=== PATIENT | female | born 1975 | race Caucasian/White ===

== ENCOUNTER 2020-10-16 01:20 | Inpatient (IN) | payer OTHER ==
[~2020-10-16] VITALS: Ht 154.9 cm; Wt 60.5 kg
[2020-10-16 02:06] LABS: HEMATOCRIT 38.3 % (36.0-47.0); HEMOGLOBIN 12.1 g/dl (12.0-15.5); MEAN CORPUSCULAR HEMOGLOBIN 29.4 pg (27.0-33.0); MEAN CORPUSCULAR HGB CONC 31.6 g/dl (32.0-36.5); MEAN CORPUSCULAR VOLUME 93.2 fl (80.0-96.0); PLATELET COUNT, AUTOMATED 236 10^3/uL (150-450); RED BLOOD COUNT 4.11 10^6/uL (4.00-5.40); WHITE BLOOD COUNT 12.6 10^3/uL (4.0-10.0)
[2020-10-16 02:39] LABS: HCG, SERUM QUALITATIVE NEGATIVE (NEGATIVE)
[2020-10-16 02:54] LABS: ACETAMINOPHEN LEVEL < 2.0 UG/ML (10.0-30.0); ALBUMIN 3.3 GM/DL (3.2-5.2); ALT/SGPT 38 U/L (12-78); BILIRUBIN,DIRECT < 0.1 MG/DL (0.0-0.2); BILIRUBIN,TOTAL 0.2 MG/DL (0.2-1.0); BLOOD UREA NITROGEN 8 MG/DL (7-18); CARBON DIOXIDE LEVEL 29 MEQ/L (21-32); CHLORIDE LEVEL 107 MEQ/L (98-107); CREATININE FOR GFR 0.85 MG/DL (0.55-1.30); ETHYL ALCOHOL (ETHANOL) < 0.003 % (0.000-0.010); GLOMERULAR FILTRATION RATE > 60.0 (>58); GLUCOSE, FASTING 116 MG/DL (70-100); LITHIUM LEVEL < 0.20 MEQ/L (0.60-1.20); SALICYLATE LEVEL 1.9 MG/DL (5.0-30.0); SODIUM LEVEL 142 MEQ/L (136-145); TOTAL PROTEIN 6.6 GM/DL (6.4-8.2)
[2020-10-16] MEDS ORDERED: NS 1,000 ML IV ONE (03:00)
[2020-10-16] MEDS ORDERED: LITH45TASA PO (03:27)
[2020-10-16] MEDS ORDERED: VENTAER INH (03:27)
[2020-10-16] MEDS ORDERED: SYMB16INH INH (03:27)
[2020-10-16] MEDS ORDERED: ZYPR1TAB2 PO (03:27)
[2020-10-16] MEDS ORDERED: REME15TA2 PO (03:27)
[2020-10-16] MEDS ORDERED: LORA2CON5 PO (03:27)
[2020-10-16] MEDS ORDERED: CLAR10CA3 PO (03:27)
[2020-10-16] MEDS ORDERED: XANA2TAB2 PO (03:27)
[2020-10-16 03:48] LABS: AMPHETAMINES LEVEL URINE NEGATIVE (NEGATIVE); BARBITURATES URINE NEGATIVE (NEGATIVE); BENZODIAZEPINES URINE POSITIVE (NEGATIVE); CANNABINOIDS URINE NEGATIVE (NEGATIVE); COCAINE METABOLITE URINE NEGATIVE (NEGATIVE); METHADONE URINE NEGATIVE (NEGATIVE); OPIATES URINE NEGATIVE (NEGATIVE); PHENCYCLIDINE URINE NEGATIVE (NEGATIVE)
[2020-10-16] MEDS ORDERED: KEPP1TAB PO (04:16)
[2020-10-16] MEDS ORDERED: ZOFR4TAB16 PO (04:16)
[2020-10-16] MEDS ORDERED: AMBI10TA PO (04:16)
[2020-10-16] MEDS ORDERED: ALBUTEROL 90 MCG/ACT 8GM HFA INHALER INH ONE (05:45)
--- NOTE | 2020-10-16 08:44 | ECGEPIP ---
[facility] [place] - ED Test Date: 2020-10-16 Pat Name: MARGARITA VANN Department: Room: - Gender: Female [employer]: BAN : 1975 Requested By: Lito Beauchamp Order Number: [id number] Reading MD: Lito Black Measurements Intervals [place] Rate: 85 P: 60 DE: 136 QRS: 67 QRSD: 84 T: 54 QT: 382 QTc: 454 Interpretive Statements Normal sinus rhythm NO PRIORS FOR COMPARISON Electronically Signed on 10-16-2020 8:44:20 EDT by Lito Black
[2020-10-16 10:17] LABS: RSV AMPLIFICATION NEGATIVE (NEGATIVE)
[2020-10-16] MEDS ORDERED: ZOLP12.518 PO (12:31)
[2020-10-16] MEDS ORDERED: LORA-674 PO (12:31)
[2020-10-16] MEDS ORDERED: ADDE1TAB14 PO (12:31)
[2020-10-16] MEDS ORDERED: ALPR1TAB3 PO (12:34)
[2020-10-16] MEDS ORDERED: LEVE250T5 PO (12:34)
[2020-10-16] MEDS ORDERED: MIRT-62 PO (12:34)
[2020-10-16] MEDS ORDERED: LORazepam 2 MG TAB PO STA (13:03)
[2020-10-16] MEDS ORDERED: hydrOXYzine 25 MG TAB PO PRN (14:45)
[2020-10-16] MEDS ORDERED: MAALOX 30 ML SUSP *UDC PO PRN (14:45)
[2020-10-16] MEDS ORDERED: ACETAMINOPHEN TAB 650MG DOSE (2X325MG) PO PRN (14:45)
[2020-10-16] MEDS ORDERED: OLANZapine ORAL DISINTEGRATING TAB 5MG PO PRN (14:45)
[2020-10-16] MEDS ORDERED: MOM 30ML SUSPENSION UDC PO PRN (14:45)
[2020-10-16] MEDS: ALPRAZolam 0.5 MG TAB PO SCH (20:09)
[2020-10-16] MEDS: levETIRAcetam 250MG TABLET (KEPPRA) PO SCH (20:09)
[2020-10-16] MEDS ORDERED: zolPIDEM TARTRATE 5 MG TAB PO SCH (21:00)
[2020-10-17 06:00] VITALS: BP 129/58
[2020-10-17] MEDS: levETIRAcetam 250MG TABLET (KEPPRA) PO SCH (08:10)
[2020-10-17] MEDS: ALPRAZolam 0.5 MG TAB PO SCH (08:10)
--- NOTE | 2020-10-17 09:45 | HPEPDOC ---
[facility] Medical History & Physical Date of Admission Oct 17, 2020 Date of Service: Oct 17, 2020 History and Physical CHIEF COMPLAINT: suicidal ideation/attempt HISTORY OF PRESENT ILLNESS: 45-year-old female, admitted to [facility] for suicidal attempt stated to her boyfriend that she will take pills and she will not be seen again in the morning. Patient reports to me that she is feeling well. Denies any active suicidal ideation and states that she was seeking attention. She reports a history of COPD, asthma, epilepsy, SVT status post catheter ablation. She reports that she suspects she may have had a seizure yesterday. Takes Keppra 250 twice a day. She is from [place]. Has not seen a neurologist in some time. Also states that her nebulizer machine is broken. She denies any chest pain, shortness of breath, palpitations, nausea, vomiting, diarrhea. She is alert, oriented. PAST MEDICAL HISTORY: COPD not O2 dependent Asthma epilepy SVT, s/p catheter ablation SOCIAL HISTORY: Patient denies smoking Patient denies etoh use Patient denies illicit drug use ALLERGIES: Please see below. REVIEW OF SYSTEMS: CONSTITUTIONAL: patient denies fevers, chills HEENT: patient denies blurred vision, loss of vision, headache,. CARDIOVASCULAR: patient denies chest pain, palpitations. RESPIRATORY: patient denies shortness of breath, cough, hemoptysis. GASTROINTESTINAL: patient denies abdominal pain, n/v/d, blood in stool. GENITOURINARY: patient denies dysuria, discharge. SKIN: patient denies rashes. MUSCULOSKELETAL: patient denies joint pain, neck pain. NEUROLOGICAL: patient denies focal weakness, numbness, seizures. PSYCHIATRIC: patient denies SI/HI. ENDOCRINE: patient denies polyuria, heat intolerance, cold intolerance. HEMATOLOGIC/LYMPHATIC: patient denies easy bruising. HOME MEDICATIONS: Please see below. PHYSICAL EXAMINATION: VITAL SIGNS: please see below General: NAD, comfortable HEENT: PERRLA, EOMI, sclerae clear Neck: supple, normal ROM, no JVD Respiratory: lungs CTAB, no wheeze, no rales, no crackles CVS: RRR, normal S1, S2, no murmurs Abdo: soft, no masses, no hepatosplenomegaly, BS+, no rebound tenderness Extremities: no edema, pulses 2+ MSK: no joint deformities, normal ROM Neuro: no focal neuro deficits, moving all 4 extremities, CN2-12 intact. Strength 5/5 in all 4 extremities. No nystagmus. Psych: calm, cooperative, AAO x 3 LABORATORY DATA: See below. MICROBIOLOGY: Please see below. ASSESSMENT: 45-year-old female with a history of epilepsy, COPD, asthma, SVT, admitted for suicidal attempt. States that she suspects she may have had a seizure yesterday, takes keppra 250 mg BID. Has not seen neurology in quite some time. She has recently moved from [place]. PLAN: Suicidal ideation/attempt: per psychiatry Hx epilpepsy: questionable seizure on 10/16/20 vs OD on bottle of pills?. Takes keppra 250 mg BID. Will increase to keppra 500 mg BID. Referral to neurology on DC. COPD: stable. takes albuterol and symbicort. not O2 dependent. Will provide refills for inhalers on DC hx SVT: denies palpitations, SOB. S/p ablation. Stable. Thank you for the consult. Please re-consult as needed. Vital Signs Vital Signs Date Time Temp Pulse Resp B/P (MAP) Pulse Ox O2 Delivery O2 Flow Rate FiO2 10/16/20 15:13 98.9 58 16 111/72 (85) 100 Room Air Home Medications Scheduled Budesonide/Formoterol (Symbicort 160-4.5 Mcg Inhaler) 6 Gm Hfa.aer.ad, 2 PUFF INH BID Dextroamphetamine/Amphetamine (Adderall 5 mg Tablet) 5 Mg Tablet, 30 MG PO TID VERIFIED WITH [facility] Levetiracetam (Levetiracetam) 250 Mg Tablet, 250 MG PO BID Loratadine (Loratadine) 10 Mg Tablet, 10 MG PO DAILY Mirtazapine (Remeron) Unknown Strength Tablet, 1 TAB PO QHS Zolpidem Tartrate (Zolpidem Tartrate ER) 12.5 Mg Tab.mphase, 12.5 MG PO QHS LAST FILLED 06/25 FOR 90 DAY SUPLY IN [place], [place] Scheduled PRN Alprazolam (Alprazolam) 1 Mg Tablet, 2 MG PO TID PRN for ANXIETY VERIFIED WITH [facility] Allergies Coded Allergies: promethazine (Verified Allergy, Severe, seizure, 10/16/20) LUCIA LUU MD Oct 17, 2020 09:45
--- NOTE | 2020-10-17 09:59 | MHHPEPDOC ---
General Date Of Admission: Oct 16, 2020 Legal Status: 9.39 Chief Complaint I had an argument with my boyfriend and I must have said something. I have no thoughts of suicide ". History of Present Illness HISTORY OF THE PRESENT ILLNESS: Patient is a 45 -year-old , female, who [has been in treatment for PTSD, but no previous inpatient treatment. Patient moved to [facility] with her boyfriend of 30 years from [place], [place] 9 months ago.. She has been in treatment for PTSD after going through a suicide of her brother] 2 years ago and has been taking Xanax, Adderall, Remeron and Ambien prescribed by a Dr in [place]. She stated that on Tuesday night she had an argument with her boyfriend and apparently said something about committing suicide and her boyfriend got very concerned and called crisis service and was brought to the the emergency room and admitted.. She stated that her boyfriend overreacted because of her PTSD and since then understand that she really was not suicidal and is being very supportive. Patient understands that she needs to be referred to a outpatient treatment in this area but in the meantime has enough supply of her medicine and is feeling safe to return home. She strongly denies any increased the symptoms of PTSD and denies any suicidal thoughts, plan or intent and has no history of suicide attempt. She is denying any other stressors and denies any ongoing issues with her boyfriend and denies any substance abuse issues and her admission. Tox screen is only positive for prescribed benzodiazepines. Psychiatric Review of Systems Depression (2 or more weeks): denies Miriam (4 or more days of): denies Psychosis: denies PTSD: history of trauma, nightmares and flashbacks (the patient had to take care of aftermath of herbrother's suicide by gun shot to his head.) Anxiety: situational anxiety Past Psychiatric History Previous Psychiatric Diagnosis: [PTSD]. Previous Psychiatric Admissions: [Multiple previous inpatient treatment]. Suicide Attempts: [No previous suicide attempt. Psychiatric Follow-up: [Currently receiving medicine from in [place]]. Psychiatric medications: [, Xanax, Adderall, Remeron and Ambien]. Past Medical History Medical Problems Has back pain with a 5 back surgeries and also has a COPD and some type of autoimmune disease. Head Injury: No Seizures: No Hospitalizations: Yes Surgeries: Yes Family Medical/Psychiatric HX Medical Problems 1. Parents over cancer, breast and prostate but psychiatric history Psychiatric Disorders: Yes Addiction: No Suicide Attemps/Completions: Yes (had one brother who committed suicide by gunshot) Addiction History denies Social History Childhood: [Uneventful]. Abuse/Trauma:[PTSD from the environment, suicide of her brother]. Current Living Situation: [Lived with a boyfriend of 30 years. Recently moved to [place] from [place], [place] 9 months ago]. Education: [High school. college]. Employment: . She used to work as an RN at [employer] Currently on disability Social Support: [Boyfriend]. Legal: . Marital: [Was once and , has 3 children and 5 grandchildren]. Mental Status Examination General Appearance: appears stated age Build: average Demeanor: average Eye Contact: average Activity: average, anxious Behavior: cooperative Speech: clear, pressured, spontaneous, normal volume Mood Denies any ongoing depression, but at times anxious with the past traumatic incident and having poor sleep. Currently is very anxious about being hospitalized and feeling very uncomfortable and asking for discharge Thought Process: logical/linear Thought Content (Delusions): denies SI, HI, AVH Thought Content (Other): none reported Thought Content (Aggressive): none reported Perception (Hallucinations): none reported Perception (Other): none reported Cognition (Impairment of): none reported Cognition(Intelligence Est.): average Oriented: Awake, Alert, Oriented times three Insight: fair Judgment: Fair Psychosis: Denies Diagnoses 2. Adjustment disorder with mixed emotion. Long history of PTSD A-FIB/CHADSVASC A-FIB History Current/History of A-Fib/PAF?: No Age/Risk Factor Scoring CHADSVASC: CHADSVASC Response (Comments) Value Gender Risk Factor Female 1 Hx of CHF No 0 Hx of HTN No 0 Hx of Stroke/TIA/or VTE No 0 Hx of Diabetes No 0 Hx of Vascular Disease No 0 Total 1 Treatment Treatment ordered: NONE Assessment Does not appear to be actively suicidal. Has a significant PTSD, but is on medications and needs to be linked with outpatient clinic. Will discharge her with outpatient arrangement Initial Treatment Plan 1. Patient was admitted on a [9.39] status. 2. Complete history was obtained. 3. With patients permission, family will be contacted and database will be expanded. 4. Patients medication regimen will be reviewed and changed accordingly. 5. Patient will be provided with protected environment. 6. Patient will be treated with individual, group, and milieu therapies. 7. Patient will receive supportive psych-education. 8. Discharge planning will commence immediately. 9. Outpatient follow-up treatment will be strongly recommended. 10. The initial treatment plan will focus initially on: * Depression. * Risk for suicide. ESTIMATED LENGTH OF STAY: - DAYS. Discharge today TIME SPENT COUNSELING AND COORDINATING INITIAL CARE: [40] minutes. Tobacco Cessation Screen If Patient is a Smoker Patient is a smoker but does not want any smoke cessation treatment N/A-No Antipsychotics Vital Signs Vital Signs Date Time Temp Pulse Resp B/P (MAP) Pulse Ox O2 Delivery O2 Flow Rate FiO2 10/16/20 15:13 98.9 58 16 111/72 (85) 100 Room Air Medications Scheduled Budesonide/Formoterol (Symbicort 160-4.5 Mcg Inhaler) 6 Gm Hfa.aer.ad, 2 PUFF INH BID, (Reported) Dextroamphetamine/Amphetamine (Adderall 5 mg Tablet) 5 Mg Tablet, 30 MG PO TID, (Reported) VERIFIED WITH [facility] Levetiracetam (Levetiracetam) 250 Mg Tablet, 250 MG PO BID, (Reported) Loratadine (Loratadine) 10 Mg Tablet, 10 MG PO DAILY, (Reported) Mirtazapine (Remeron) Unknown Strength Tablet, 1 TAB PO QHS, (Reported) Zolpidem Tartrate (Zolpidem Tartrate ER) 12.5 Mg Tab.mphase, 12.5 MG PO QHS, (Reported) LAST FILLED 06/25 FOR 90 DAY SUPLY IN [place], [place] Scheduled PRN Alprazolam (Alprazolam) 1 Mg Tablet, 2 MG PO TID PRN for ANXIETY, (Reported) VERIFIED WITH [facility] Allergies Coded Allergies: promethazine (Verified Allergy, Severe, seizure, 10/16/20) MONIQUE LOYA M.D. Oct 17, 2020 09:59
[2020-10-17] MEDS ORDERED: KEPP1TAB PO (10:02)
[2020-10-17] MEDS ORDERED: PROAAER10 INH (10:05)
--- NOTE | 2020-10-17 10:06 | MHDSPDOC ---
[facility] Discharge Summary Discharge Summary DATE OF ADMISSION: Oct 16, 2020 at 14:41 DATE OF DISCHARGE: 10/17/2020 DISCHARGE DIAGNOSES: 1. . Adjustment disorder with mixed emotion 2. . PTSD REASON FOR ADMISSION: Patient made a suicidal comment while arguing with her boyfriend of 30 years. Patient denies any suicidal intent or thoughts. Patient hasn't been in treatment for PTSD from her brothers suicide but denies any thoughts of suicide CONSULTANTS INVOLVED: None TREATMENT AND PROGRESS ON THE UNIT : Patient was seen for evaluation of lethality and given support and education. Patient does not appear to be acutely suicidal and has a supportive boyfriend, housing, and her medications and is willing to accept outpatient referral in April.. HOSPITAL COURSE: Patient showed no suicidal behavior and in good control and is very pleasant, cooperative with no psychotic symptoms and does not appear to be acutely suicidal. DISCHARGE ASSESSMENT: Stable at her baseline and not suicidal MENTAL STATUS EXAMINATION ON DISCHARGE: Patient is a 45-year old female, who is pleasant and cooperative . Speech is rational, coherent and productive. Language skills are , good. Thought processes including. Organized, relevant Thought content: . No suicidal thoughts. Abstract reasoning, and computation: Good. Description of associations: Well-organized. Description of abnormal or psychotic thoughts: [None. Judgment: , Fair. Insight: Fair . Orientation to , well oriented. Recent and remote memory: Good. Attention span and concentration: Good. Language: . Fund of knowledge: Average. Mood: , Mildly anxious. Affect: , Appropriate, good range. MEDICATIONS ON DISCHARGE: - for .. Continue her home medicine and her Keppra will be increased to 500 mg twice a day, per recommendation of hospitalist - for . - for . PLAN/FOLLOWUP ARRANGEMENTS: To be arranged by the vacation planner. The amount of time spent in the coordination of care for this patient was approximately 30 minutes. ETOH/Disorder Med Rx ETOH/DRUG DISORDER RX: N/A Vital Signs/I&Os Vital Signs Date Time Temp Pulse Resp B/P (MAP) Pulse Ox O2 Delivery O2 Flow Rate FiO2 10/16/20 15:13 98.9 58 16 111/72 (85) 100 Room Air Medications Scheduled Budesonide/Formoterol (Symbicort 160-4.5 Mcg Inhaler) 6 Gm Hfa.aer.ad, 2 PUFF INH BID, (Reported) Dextroamphetamine/Amphetamine (Adderall 5 mg Tablet) 5 Mg Tablet, 30 MG PO TID, (Reported) VERIFIED WITH [facility] Levetiracetam (Levetiracetam) 250 Mg Tablet, 250 MG PO BID, (Reported) Loratadine (Loratadine) 10 Mg Tablet, 10 MG PO DAILY, (Reported) Mirtazapine (Remeron) Unknown Strength Tablet, 1 TAB PO QHS, (Reported) Zolpidem Tartrate (Zolpidem Tartrate ER) 12.5 Mg Tab.mphase, 12.5 MG PO QHS, (Reported) LAST FILLED 06/25 FOR 90 DAY SUPLY IN [place], [place] Scheduled PRN Alprazolam (Alprazolam) 1 Mg Tablet, 2 MG PO TID PRN for ANXIETY, (Reported) VERIFIED WITH [facility] Allergies Coded Allergies: promethazine (Verified Allergy, Severe, seizure, 10/16/20) MONIQUE LOYA M.D. Oct 17, 2020 10:06
== END 2020-10-17 10:34 | disposition home or self-care (01) | DRG 882 ==
LOC: M ED 01:20 → M PSY 14:41 → M ED 15:16
PROVIDERS: ADMIT Psychiatry & Neurology Psychiatry; ATTEND Psychiatry & Neurology Psychiatry
DX: F43.25 Adjustment disorder with mixed disturbance of emotions and conduct (principal); F43.10 Post-traumatic stress disorder, unspecified; Z81.8 Family history of other mental and behavioral disorders; J44.9 Chronic obstructive pulmonary disease, unspecified; J45.909 Unspecified asthma, uncomplicated; G40.909 Epilepsy, unspecified, not intractable, without status epilepticus; Z79.899 Other long term (current) drug therapy; Z88.8 Allergy status to other drugs, medicaments and biological substances